=== PATIENT | male | born 1970 | race Caucasian/White ===

== ENCOUNTER 2016-09-08 15:11 | Emergency (ER) | payer OTHER ==
[2016-09-08 15:21] VITALS: RESP 16; O2SAT 97
[2016-09-08] MEDS ORDERED: IBUPROFEN 800 MG TAB PO ONE (17:04)
[2016-09-08] MEDS ORDERED: CEPHALEXIN 500 MG CAP PO ONE (17:04)
[2016-09-08] MEDS ORDERED: IBUPROFEN 600 MG TAB PO ONE (17:30)
--- NOTE | 2016-09-08 17:41 | EDPHY ---
H & P Time Seen by Provider: 09/08/16 16:23 HPI/ROS: HPI Left elbow pain. 45-year-old male by private vehicle. He presents to Urgent Care with complaint of atraumatic left elbow pain worsening over the last 3-4 days. 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 He complains of swelling and pain to this left elbow. He denies any significant past medical history. ROS: Constitutional: No fever, no chills. No weakness. Musculoskeletal: As above. No other extremity pain. Skin: No rashes. No lacerations or abrasions. Neurological: No focal weakness or altered sensation. Past medical history: Denies. Primary care physician is here at the [facility]. Social history: Nonsmoker. Here by himself. Physical Exam: General Appearance: Alert, no distress. This patient is responding to questions appropriately and in full sentences. This patient appears well- hydrated and well-nourished. Eyes: Pupils equal and round no pallor or injection. No lid edema, erythema or injection. Left elbow exam: Significant for a tender swollen olecranon bursa area. No pain on axial compression of the left elbow joint. He does not have significant joint pain with flexion and extension of the elbow. He does complain of pain to the superficial aspect of the olecranon bursa area. There is also some faint erythema that is more on the medial and lateral aspects of the olecranon. No significant warmth. No fluctuance or evidence of abscess. The left upper extremity is neurovascularly intact. Neurological: Motor sensory function is grossly intact. Cranial nerves are normal. Gait is normal. Skin: Warm and dry, as above. Extremities are symmetrical. All joints range without pain or impingement except noted above. Psychiatric: No agitation. No depression. Database: EKG: Imaging: Procedures: Procedure: Left olecranon bursa aspiration. I obtained verbal consent from the patient to drain the left olecranon bursa who was informed about the possibility of bleeding and pain. Sterile preparation with chlorhexidine and drapes. Local anesthesia with 2% lidocaine with epinephrine. The olecranon bursa was entered posteriorly with an 18 gauge needle. A small amount of serous sanguinous fluid was obtained. The patient tolerated the procedure well. There were no complications. The procedure was performed by myself. Procedure: Splint placement. A bulky padded ortho glass splint was applied left elbow for protection. After application of the splint I returned and re-examined the patient. The splint was adequately immobilizing the joint and distal to the splint the patient's circulation and sensation was intact. Emergency department course: After above noted procedure, the patient was given 600 mg of ibuprofen and 500 mg of Keflex. There was not enough fluid obtained to sent for Gram stain and culture. Plan will be to have him follow up with his primary care physician on Saturday for re-evaluation. Orthopedic consultation can be arranged through his primary care physician as needed. I will prescribe him Keflex and high-dose ibuprofen for treatment of olecranon bursitis. Keflex is being given secondary to a small amount of erythema that was noted on the lateral and medial aspect of the olecranon bursa area. This plan was discussed with the patient. Return to Urgent Care/emergency department precautions reviewed. All of his questions were answered. He was discharged in good condition. Differential Diagnosis: The differential diagnosis on this patient includes but is not limited to olecranon bursitis, left elbow cellulitis. Septic joint unlikely. This represents a partial list of diagnoses considered. These considerations are based on history, physical exam, past history, reassessment and diagnostic testing. Smoking Status: Never smoked Constitutional: Initial Vital Signs Temperature (C) 37.2 C 09/08/16 15:18 Heart Rate 67 09/08/16 15:18 Respiratory Rate 16 09/08/16 15:18 Blood Pressure 126/65 H 09/08/16 15:18 O2 Sat (%) 97 09/08/16 15:18 O2 Delivery Mode Room Air Allergies/Adverse Reactions: No Known Allergies Allergy (Verified 09/08/16 15:21) Home Medications: Medication Instructions Recorded Cephalexin [Keflex (*)] 500 mg PO Q6 7 Days 09/08/16 Medical Decision Making - Data Points Medications Given: Discontinued Medications Cephalexin HCl (Keflex) 500 mg PO EDNOW ONE PRN Reason: Protocol Stop: 09/08/16 17:05 Last Admin: 09/08/16 17:33 Dose: 500 mg Ibuprofen (Motrin) 800 mg PO EDNOW ONE Stop: 09/08/16 17:05 Last Admin: 09/08/16 17:33 Dose: 600 mg Departure - Departure Disposition: Home, Routine, Self-Care Clinical Impression: Olecranon bursitis of left elbow Condition: Good Instructions: Elbow Bursitis (ED) Additional Instructions: Read and follow provided instructions. Take antibiotic as prescribed through entire course of treatment unless otherwise directed by primary care physician or microbial specialist. Follow-up with your primary care physician or microbial specialist in 1 to 2 days for reevaluation. Ibuprofen dosin mg every 6 hours with meals for the next 4-5 days only. Return to the emergency department for worsening pain, swelling, fever, discoloration or other serious concerns. Referrals: Jose Luis Batista MD [Primary Care Provider] - As per Instructions Ana Mar MD [Medical Doctor] - As per Instructions Prescriptions: Cephalexin [Keflex (*)] 500 mg PO Q6 7 Days
[2016-09-08 17:50] VITALS: BP 122/72; PULSE 68; TEMP 98.6
== END 2016-09-08 17:49 | disposition home or self-care (01) ==
LOC: CED 15:11
PROC: 2W3BX1Z Immobilization of Left Upper Arm using Splint (ICD-10-PCS; principal; 2016-09-08)
PROC: 0M9 Bursae and Ligaments, Drainage (ICD-10-PCS; principal; 2016-09-08)
DX: M70.22 Olecranon bursitis, left elbow (principal)
CPT/HCPCS: G0463-PO